=== PATIENT | male | born 1970 ===

== ENCOUNTER → 2024-05-16 | Outpatient (CLI) | payer OTHER ==
[2024-05-16 15:20] LABS: Stool Occult Bld Immuno 1 Negative (NEGATIVE)
== END | disposition home or self-care (01) ==
LOC: LAB SHORT 07:45 → LAB 07:45
PROVIDERS: Student in an Organized Health Care Education/Training Program
DX: Z12.11 Encounter for screening for malignant neoplasm of colon (principal)
CPT/HCPCS: G0328

== ENCOUNTER 2025-04-20 12:53 | Day surgery (SDC) | payer OTHER ==
[~2025-04-20] VITALS: Ht 175.3 cm; Wt 105.9 kg
[2025-04-20] VITALS (25 sets, daily range): BP systolic 83–152; BP diastolic 59–105
--- NOTE | 2025-04-20 13:46 | NUR ---
Ambulatory in Day Surgery. History, Chart, Medications and Allergies reviewed before start of procedure. Patient confirms NPO status and agrees with scheduled surgery. Pre-Op teaching done. Pt verbalizes understanding. Patient States Post-Procedure ride home has been arranged.
[2025-04-20] MEDS ORDERED: Midazolam HCl 1MG / ML 2ML Vial ONE (14:55)
--- NOTE | 2025-04-20 15:03 | NUR ---
04/20/25 1504 Jacqueline Marie CONFIRMED AND REVIEWED H&P, MEDCICATIONS, ALLERGIES, MEDICAL HISTORY, RESPIRATORY HISTORY, VITAL SIGNS, 3-LEAD EKG, CONSENTS, AND PHYSICIAN ORDERS. PATIENT CONFIRMS NPO STATUS AND AGREES WITH SCHEDULED PROCEDURE. MONITOR INTACT WITH CONTINUOUS PULSE OXIMETRY, CAPNOGRAPHY, 3-LEAD EKG, INTERMITTENT BP. SUPPLEMENTAL O2 TO BE TITRATED THROUGHOUT PROCEDURE TO MAINTAIN O2 SATURATION ABOVE 90%. PATIENT DETERMINED TO BE ASA APPROPRIATE FOR PROPOFOL SEDATION PRIOR TO START OF PROCEDURE BY DR. RICARDO. STOP BANG 7, MALAMPATTI SCORE 3. ANESTHESIA CONSULT OBTAINED AND DEEMED APPROPRIATE FOR NURSE SEDATION BY DR. MOSELEY ANESTHESIA.
--- NOTE | 2025-04-20 16:07 | NUR ---
Discharge instructions reviewed with patient. Patient verbalizes understanding. Copy given to patient to take home. Discharged via wheelchair to private car for ride home.
[2025-04-20] MEDS ORDERED: Atropine Sulfate 0.4 MG/ML 20ML VIAL IV ONE (16:32)
== END 2025-04-20 16:00 | disposition home or self-care (01) ==
LOC: ORSCMMR 12:53 → ORD 14:15 → ORSCMMR 14:15
PROVIDERS: Family Medicine
PROC: 0DBN8ZX Excision of Sigmoid Colon, Via Natural or Artificial Opening Endoscopic, Diagnostic (ICD-10-PCS; principal; 2025-04-20 14:15)
DX: Z12.11 Encounter for screening for malignant neoplasm of colon (principal); K63.5 Polyp of colon; K64.8 Other hemorrhoids; I10 Essential (primary) hypertension; F41.9 Anxiety disorder, unspecified; F32.9 Major depressive disorder, single episode, unspecified
CPT/HCPCS: 88305; J2250; J2704; J7120

== ENCOUNTER 2025-06-22 14:20 | Emergency (ER) | payer OTHER ==
[~2025-06-22] VITALS: Ht 175.3 cm; Wt 104.3 kg
== END 2025-06-22 15:36 | disposition home or self-care (01) ==
LOC: ER 14:20
DX: S52.571A Other intraarticular fracture of lower end of right radius, initial encounter for closed fracture (principal); Z88.2 Allergy status to sulfonamides; Z88.6 Allergy status to analgesic agent; Z88.5 Allergy status to narcotic agent; W01.0XXA Fall on same level from slipping, tripping and stumbling without subsequent striking against object, initial encounter
CPT/HCPCS: 73110; 99283-25

== ENCOUNTER 2025-06-24 13:28 | Emergency (ER) | payer OTHER ==
[~2025-06-24] VITALS: Ht 175.3 cm; Wt 104.3 kg
== END 2025-06-24 14:06 | disposition home or self-care (01) ==
LOC: ER 13:28
DX: S52.571A Other intraarticular fracture of lower end of right radius, initial encounter for closed fracture (principal); Z88.2 Allergy status to sulfonamides; Z88.8 Allergy status to other drugs, medicaments and biological substances; X58.XXXA Exposure to other specified factors, initial encounter
CPT/HCPCS: 99282

== ENCOUNTER 2025-06-29 07:30 | Emergency (ER) | payer OTHER ==
[~2025-06-29] VITALS: Ht 180.3 cm; Wt 108.9 kg
== END 2025-06-29 08:18 | disposition home or self-care (01) ==
LOC: ER 07:30
DX: S52.571A Other intraarticular fracture of lower end of right radius, initial encounter for closed fracture (principal); Z59.89 Other problems related to housing and economic circumstances; X58.XXXA Exposure to other specified factors, initial encounter
CPT/HCPCS: 73090; 73110; 99283-25